=== PATIENT | female | born 1985 | race African-American/Black ===

== ENCOUNTER 2018-02-20 06:55 | Day surgery (SDC) | payer MEDICAID ==
[2018-02-18 15:50] LABS: BASOPHILS 0.3 % (0-2); EOSINOPHILS 1.3 % (0-7); HEMATOCRIT 33.1 % (36.0-48.0); HEMOGLOBIN 10.5 g/dL (12-16); IMMATURE GRANULOCYTES 0.2 % (0-5); LYMPHOCYTES 29.4 % (15-50); MCH 27.7 pg (26.0-34.0); MCHC 31.7 g/dL (31.0-37.0); MCV 87.3 fL (80.0-100.0); MEAN PLATELET VOLUME 9.1 fL (7.4-10.4); MONOCYTES 11.9 % (2-11); NEUTROPHILS 56.9 % (40-80); RBC 3.79 10x6/uL (4.00-5.40); RDW 14.4 % (11.5-14.5); WBC 6.2 10x3/uL (4.8-10.8)
[2018-02-18 15:54] LABS: PLATELET COUNT 304 10x3/uL (130-400)
[~2018-02-20] VITALS: Ht 154.9 cm; Wt 72.1 kg
[2018-02-20 07:06] VITALS: BP 99/60; Ht 154.9 cm; Wt 72.1 kg
[2018-02-20 07:20] LABS: HCG URINE NEGATIVE (NEGATIVE)
--- NOTE | 2018-02-20 10:45 | NUR ---
REC'D FROM [facility]. FAMILY AT BEDSIDE. FL TRAY BROUGHT TO PT..
--- NOTE | 2018-02-20 10:50 | NUR ---
ASYA MAHMOOD SERVED. FAMILY AT BEDSIDE.
--- NOTE | 2018-02-20 11:30 | NUR ---
AMBULATED TO BATHROOM AND VOIDED WITHOUT DIFFICULTY. IV DC'D WITH CATHETER INTACT.
--- NOTE | 2018-02-20 11:50 | NUR ---
WRITTEN AND VEDRBAL DC INST. GIVEN TO PT ALONG WITH RX. VERBALIZED UNDERSTANDING.
--- NOTE | 2018-02-20 12:00 | NUR ---
DC'D HOME WITH FAMILY VIA PRIVATE VEHICLE. TAKEN TO VEHICLE VIA WC. STABLE AT TIME OF DC.
--- NOTE | 2018-03-09 14:35 | OP ---
PATIENT NAME: ALBERT GARCIA MEDICAL RECORD: [id number] :85 LOCATION:[facility] ADMISSION DATE: SURGEON: DYLAN WARREN MD DATE OF OPERATION: 02/20/2018 PREOPERATIVE DIAGNOSIS: High-grade cervical dysplasia. POSTOPERATIVE DIAGNOSIS: High-grade cervical dysplasia. PROCEDURE: Loop electrosurgical excision procedure. SURGEON: Dylan Warren ANESTHESIA: General by LMA. INTRAVENOUS FLUIDS: Per anesthesia record. SPECIMENS: Cervical cone biopsy. COMPLICATIONS: None apparent. FINDINGS: Grossly normal-appearing cervix. PROCEDURE IN DETAIL: The patient was taken to the operating room where general anesthesia was achieved without any difficulty. The patient was then prepped and draped in normal sterile fashion in the dorsal lithotomy position in the [facility]. The vagina was prepped and the bladder was drained of approximately 50 cc of clear yellow urine. At this point, an insulated speculum was placed into the vagina and the 1- x 2-cm LEEP electrode was used to excise cone biopsy at the level of the cervical transitional zone. The cervical crater was then cauterized using the Bovie cautery with good hemostasis noted. The Monsel's solution was then placed on the cervical crater and the insulated speculum was removed. The patient was transferred to postanesthesia recovery stable without incident. TRANSINT:[id number] Voice Confirmation ID: [id number] DOCUMENT ID: [id number] DYLAN WARREN MD at 1435 CC: [id number] DICTATION DATE: 03/07/18 0627 [employer]: 03/07/18 1238 [facility] 02/20/[address] [address]
== END 2018-02-20 12:00 | disposition home or self-care (01) ==
LOC: D.OPS 06:55 → D.PAN 07:30 → D.OPS 08:45
PROVIDERS: Obstetrics & Gynecology
DX: D06.0 Carcinoma in situ of endocervix (principal); Z01.812 Encounter for preprocedural laboratory examination